=== PATIENT | female | born 1980 | race African-American/Black ===

== ENCOUNTER 2017-06-11 17:04 | Inpatient (IN) | payer BC ==
[~2017-06-11] VITALS: Ht 162.6 cm; Wt 136.3 kg
[2017-06-11 18:01] LABS: HEMATOCRIT 42.7 % (36.0-46.0); MCH 27.1 PG (29.0-34.0); MCHC 32.3 G/DL (30.0-36.0); MCV 83.9 FL (83-99); PLATELET COUNT 447 K/uL (156-360); RBC DIS.WIDTH-CV 14.4 % (11.8-14.6); RBC DIS.WIDTH-SD 43.9 % (39-53); RED BLOOD COUNT 5.09 M/uL (3.80-5.20); WHITE BLOOD COUNT 19.3 K/uL (4.1-10.2)
[2017-06-11 18:12] LABS: CHLORIDE 100 mEq/L (99-109); SODIUM 138 mEq/L (136-147)
[2017-06-11 18:14] LABS: GLUCOSE 110 mg/dL (70-99)
[2017-06-11 18:15] LABS: ANION GAP 12 MEQ/L (2-14)
[2017-06-11 18:18] LABS: GFR ESTIMATE (CALCULATED) > 59 mL/min/
[2017-06-11 18:19] LABS: UREA NITROGEN (BUN) 14 mg/dL (9-23)
[2017-06-11 18:29] LABS: INTER. NORMALIZED RATIO 1.3; PROTHROMBIN TIME 14.5 SEC (10.2-12.9)
[2017-06-11 18:32] LABS: PTT 34.1 SEC (25-37)
[2017-06-11 18:44] LABS: TROP-I INTERPRETATION NEGATIVE; TROPONIN-I 0.05 ng/mL (0.0-0.30)
[2017-06-11] MEDS ORDERED: IRBESARTAN150 MG PO (20:42)
[2017-06-11] MEDS ORDERED: FUROSEMIDE40 MG PO (20:42)
[2017-06-11] MEDS ORDERED: CETIRIZINE HCL10 M2 PO (20:43)
[2017-06-11] MEDS ORDERED: CYCLOBENZAPRINE10 MG PO (20:44)
[2017-06-11] MEDS ORDERED: NAPROXEN500 MG PO (20:44)
[2017-06-12 00:47] VITALS: BP 128/79
[2017-06-12 05:58] LABS: HEMATOCRIT 38.7 % (36.0-46.0); MCH 27.7 PG (29.0-34.0); MCHC 32.8 G/DL (30.0-36.0); MCV 84.3 FL (83-99); MEAN PLAT.VOLUME 9.8 uM^3 (9.5-12.4); PLATELET COUNT 331 K/uL (156-360); RBC DIS.WIDTH-CV 14.8 % (11.8-14.6); RBC DIS.WIDTH-SD 45.2 % (39-53); RED BLOOD COUNT 4.59 M/uL (3.80-5.20); WHITE BLOOD COUNT 17.8 K/uL (4.1-10.2)
[2017-06-12 06:20] LABS: ANION GAP 11 MEQ/L (2-14); CHLORIDE 100 MEQ/L (99-109); GFR ESTIMATE (CALCULATED) > 59 mL/min/; GLUCOSE 116 mg/dL (70-99); POTASSIUM 3.7 MEQ/L (3.7-5.4); SAMPLE HEMOLYSIS CHECK 0; SAMPLE ICTERIC CHECK 0; SAMPLE LIPEMIA CHECK 0; SODIUM 135 MEQ/L (136-147); UREA NITROGEN (BUN) 12 mg/dL (9-23)
[2017-06-12 07:35] VITALS: BP 117/75
[2017-06-12 09:26] LABS: ALKALINE PHOSPHATASE 303 IU/L (3-129); DIRECT BILIRUBIN 1.1 mg/dL (0.0-0.3); LIPASE 3 U/L (1.0-51.0); TOTAL BILIRUBIN 2.2 MG/DL (0.0-1.0)
[2017-06-12 15:28] VITALS: BP 124/67
[2017-06-12 22:26] VITALS: BP 110/62
[2017-06-12 22:47] LABS: COLOR ORANGE ((YELLOW)); GLUCOSE (STRIP) NEGATIVE; KETONES NEGATIVE; LEUKOCYTES SMALL; NITRITE NEGATIVE; PROTEIN (STRIP) TRACE
[2017-06-12 22:48] LABS: ADD MIUA? YES; BILIRUBIN NEGATIVE; BLOOD TRACE
[2017-06-12 22:52] LABS: AMORPHOUS URATES CRYSTALS 2+; BACTERIA 2+ /HPF; CASTS NONE SEEN /LPF; CRYSTALS PRESENT; EPITHELIAL CELLS 1+ /HPF; MUCUS NONE SEEN /LPF; RED BLOOD CELLS 0-5 /HPF (0-5); UCUL ADDED? YES
[2017-06-13 07:31] VITALS: BP 136/68
[2017-06-13 13:13] LABS: HEMATOCRIT 39.1 % (36.0-46.0); MCH 26.9 PG (29.0-34.0); MCHC 31.7 G/DL (30.0-36.0); MCV 84.8 FL (83-99); PLATELET COUNT 320 K/uL (156-360); RBC DIS.WIDTH-CV 14.8 % (11.8-14.6); RBC DIS.WIDTH-SD 46.1 % (39-53); RED BLOOD COUNT 4.61 M/uL (3.80-5.20); WHITE BLOOD COUNT 16.5 K/uL (4.1-10.2)
[2017-06-13 14:33] LABS: ALKALINE PHOSPHATASE 281 IU/L (3-129); ANION GAP 12 MEQ/L (2-14); CHLORIDE 96 MEQ/L (99-109); GFR ESTIMATE (CALCULATED) > 59 mL/min/; GLUCOSE 100 mg/dL (70-99); POTASSIUM 4.1 MEQ/L (3.7-5.4); SAMPLE HEMOLYSIS CHECK 0; SAMPLE ICTERIC CHECK 0; SAMPLE LIPEMIA CHECK 0; SODIUM 134 MEQ/L (136-147); TOTAL BILIRUBIN 2.1 MG/DL (0.0-1.0); UREA NITROGEN (BUN) 8 mg/dL (9-23)
[2017-06-13 15:52] VITALS: BP 140/70
[2017-06-14 01:17] VITALS: BP 119/60
[2017-06-14 07:23] VITALS: BP 125/72
[2017-06-14] MEDS ORDERED: DOCUSATE SODIU100 MG PO (09:52)
[2017-06-14] MEDS ORDERED: POLYETHYLENE GL17 GM PO (09:52)
[2017-06-14] MEDS ORDERED: ALPRAZOLAM0.25 M2 PO (09:54)
[2017-06-14] MEDS ORDERED: MORPHINE SULFAT15 M1 PO (09:54)
[2017-06-14] MEDS ORDERED: ACETAMINOPHEN-1 EAC1 PO (09:54)
[2017-06-14] MEDS ORDERED: Salonpas 4% Patch TD (09:55)
[2017-06-14] MEDS ORDERED: VENTOLIN HFA18 GM IH (09:59)
== END 2017-06-14 12:09 | disposition home or self-care (01) | DRG 436 ==
LOC: EME 17:04 → EDOF 22:29 → 5EAST 22:29 → ENRESERV 22:30 → 5EAST 06-12
PROVIDERS: Emergency Medicine; Hospitalist
PROC: 0FB03ZX Excision of Liver, Percutaneous Approach, Diagnostic (ICD-10-PCS; principal; 2017-06-13)
DX: C78.7 Secondary malignant neoplasm of liver and intrahepatic bile duct (principal); C78.02 Secondary malignant neoplasm of left lung; C78.01 Secondary malignant neoplasm of right lung; C77.1 Secondary and unspecified malignant neoplasm of intrathoracic lymph nodes; R50.9 Fever, unspecified; E28.2 Polycystic ovarian syndrome; I10 Essential (primary) hypertension; M54.9 Dorsalgia, unspecified; K59.00 Constipation, unspecified; E66.01 Morbid (severe) obesity due to excess calories; Z68.43 Body mass index [BMI] 50.0-59.9, adult; Z80.3 Family history of malignant neoplasm of breast; Z87.891 Personal history of nicotine dependence
CPT/HCPCS: 71010; 71020; 71275; 74176; 77012; 80048; 80053; 80076; 81003; 82105 90; 82378; 83690; 83880; 84484; 85027; 85610; 85730; 86300 90; 86301 90; 86304; 87040; 87086; 88307; 88341 TC; 88342 TC; 93005; 94640; 94640 76; 99202; 99281; 99285; J1650; J2270; J3010; J7030

== ENCOUNTER → 2017-08-02 | Outpatient (CLI) | payer BC ==
[~2017-08-02] MED LIST: ACETAMINOPHEN-1 EAC1 PO; ALPRAZOLAM0.25 M2 PO; CALCIUM 500 MG1 EACH PO; CETIRIZINE HCL10 M2 PO; CLARITIN10 M3 PO; CYCLOBENZAPRINE10 MG PO; DOCUSATE SODIU100 MG PO; FOLIC ACID1 MG PO; FUROSEMIDE40 MG PO; IRBESARTAN150 MG PO; MORPHINE SULFAT15 M1 PO; NAPROXEN500 MG PO; POLYETHYLENE GL17 GM PO; ROXICODONE5 MG PO; Salonpas 4% Patch TD; VENTOLIN HFA18 GM IH; VITAMIN D32000 UNI1 PO
== END | disposition home or self-care (01) ==
LOC: AMB 11:39
PROC: 0HBT0ZX Excision of Right Breast, Open Approach, Diagnostic (ICD-10-PCS; principal; 2017-08-02)
DX: C50.911 Malignant neoplasm of unspecified site of right female breast (principal); C22.1 Intrahepatic bile duct carcinoma; C78.00 Secondary malignant neoplasm of unspecified lung; C79.51 Secondary malignant neoplasm of bone; I10 Essential (primary) hypertension; E66.01 Morbid (severe) obesity due to excess calories
CPT/HCPCS: 88305

== ENCOUNTER 2018-01-20 17:38 | Inpatient (IN) | payer BC, OTHER ==
[~2018-01-20] VITALS: Ht 162.6 cm; Wt 97.0 kg
[2018-01-20 18:39] LABS: HEMATOCRIT 29.7 % (36.0-46.0); HEMOGLOBIN 9.9 G/DL (11.9-15.5); MCH 34.9 PG (29.0-34.0); MCHC 33.3 G/DL (30.0-36.0); MCV 104.6 FL (83-99); PLATELET COUNT 154 K/uL (156-360); RBC DIS.WIDTH-CV 19.9 % (11.8-14.6); RBC DIS.WIDTH-SD 76.7 % (39-53); RED BLOOD COUNT 2.84 M/uL (3.80-5.20); WHITE BLOOD COUNT 8.7 K/uL (4.1-10.2)
[2018-01-20 18:43] LABS: ALBUMIN 2.8 g/dL (3.2-4.8); CHLORIDE 101 mEq/L (99-109); POTASSIUM 5.8 mEq/L (3.7-5.4); SODIUM 134 mEq/L (136-147)
[2018-01-20 18:45] LABS: GLUCOSE 91 mg/dL (70-99); TOTAL PROTEIN 5.9 g/dL (6.4-8.3)
[2018-01-20 18:47] LABS: TOTAL BILIRUBIN 8.9 mg/dL (0.0-1.0)
[2018-01-20 18:49] LABS: ALKALINE PHOSPHATASE 684 IU/L (3-129); CREATININE 4.4 mg/dL (0.6-1.3); GFR ESTIMATE (CALCULATED) 14 mL/min/
[2018-01-20 18:50] LABS: UREA NITROGEN (BUN) 49 mg/dL (9-23)
[2018-01-20 18:51] LABS: AST (GOT) 125 IU/L (2-34)
[2018-01-20 18:52] LABS: ALT (GPT) 61 IU/L (3-49)
[2018-01-20 18:53] LABS: TROP-I INTERPRETATION INDETERMINATE; TROPONIN-I 0.53 ng/mL (0.0-0.30)
[2018-01-20] MEDS ORDERED: MS CONTIN,ORAMO15 M1 PO (20:50)
[2018-01-20] MEDS ORDERED: SENNA PLUS TAB1 EACH PO (20:52)
[2018-01-20] MEDS ORDERED: CALCIUM 500 MG1 EACH PO (20:52)
[2018-01-20] MEDS ORDERED: MIRALAX17 GM PO (20:53)
[2018-01-20] MEDS ORDERED: ZYRTEC10 M3 PO (20:54)
[2018-01-20] MEDS ORDERED: ROCALTROL0.25 MCG PO (20:55)
[2018-01-20] MEDS ORDERED: ERGOCALCIF50000 UNIT PO (20:55)
[2018-01-20] MEDS ORDERED: KLOR-CON M2020 MEQ PO (20:55)
[2018-01-20] MEDS ORDERED: PROTONIX40 MG PO (20:56)
[2018-01-20] MEDS ORDERED: B-12500 MC1 SL (20:56)
[2018-01-20] MEDS ORDERED: OXYCODONE HCL10 MG PO (20:58)
[2018-01-20] MEDS ORDERED: [UNRECOGNIZED DRUG - OTHER] TP (21:00)
[2018-01-20 22:30] LABS: ALBUMIN 2.8 g/dL (3.2-4.8); CHLORIDE 101 mEq/L (99-109); POTASSIUM 5.8 mEq/L (3.7-5.4); SODIUM 133 mEq/L (136-147)
[2018-01-20 22:33] LABS: GLUCOSE 103 mg/dL (70-99); TOTAL PROTEIN 5.8 g/dL (6.4-8.3)
[2018-01-20 22:34] LABS: TOTAL BILIRUBIN 8.9 mg/dL (0.0-1.0)
[2018-01-20 22:36] LABS: ALKALINE PHOSPHATASE 696 IU/L (3-129); CREATININE 4.4 mg/dL (0.6-1.3); GFR ESTIMATE (CALCULATED) 14 mL/min/
[2018-01-20 22:37] LABS: UREA NITROGEN (BUN) 48 mg/dL (9-23)
[2018-01-20 22:38] LABS: AST (GOT) 121 IU/L (2-34)
[2018-01-20 22:39] LABS: ALT (GPT) 62 IU/L (3-49)
[2018-01-21] VITALS (19 sets, daily range): BP systolic 46–113; BP diastolic 39–86
[2018-01-21 02:51] LABS: HEMATOCRIT 28.6 % (36.0-46.0); HEMOGLOBIN 9.4 G/DL (11.9-15.5); MCH 34.8 PG (29.0-34.0); MCHC 32.9 G/DL (30.0-36.0); MCV 105.9 FL (83-99); PLATELET COUNT 173 K/uL (156-360); RBC DIS.WIDTH-CV 19.9 % (11.8-14.6); RBC DIS.WIDTH-SD 79.2 % (39-53); WHITE BLOOD COUNT 9.2 K/uL (4.1-10.2)
[2018-01-21 03:01] LABS: CHLORIDE 101 mEq/L (99-109); POTASSIUM 5.4 mEq/L (3.7-5.4); SODIUM 134 mEq/L (136-147)
[2018-01-21 03:03] LABS: GLUCOSE 101 mg/dL (70-99)
[2018-01-21 03:07] LABS: CREATININE 4.4 mg/dL (0.6-1.3); GFR ESTIMATE (CALCULATED) 14 mL/min/
[2018-01-21 03:08] LABS: UREA NITROGEN (BUN) 48 mg/dL (9-23)
[2018-01-21 03:14] LABS: TROP-I INTERPRETATION INDETERMINATE; TROPONIN-I 0.58 ng/mL (0.0-0.30)
[2018-01-21 08:49] LABS: PHOSPHORUS 5.3 mg/dL (2.5-4.9)
[2018-01-21 08:52] LABS: URIC ACID 15.4 mg/dL (3.1-9.2)
[2018-01-21 09:01] LABS: BICARBONATE 17.2 mEq/L (22-26); COMMENTS - BLOOD GASES A+C+; DEVICE NC; METHEMOGLOBIN 0.9 % (0-1.5); O2 FLOW 2 L/MIN; PCO2 45 mm Hg (35-45); PO2 92 mm Hg (80-100); SITE RR; TOTAL RESP RATE 16 resp/min
[2018-01-21 09:02] LABS: BASE EXCESS -10.4 mEq/L (-3 to +3)
[2018-01-21 09:04] LABS: pH 7.19 (7.35-7.45)
[2018-01-21 15:47] LABS: PCO2 59 mm Hg (35-45); PO2 38 mm Hg (80-100); pH 7.24 (7.35-7.45)
[2018-01-21 15:48] LABS: BASE EXCESS -2.5 mEq/L (-3 to +3); BICARBONATE 25.3 mEq/L (22-26); CARBOXY HGB 1.6 % (0-5); METHEMOGLOBIN 1.4 % (0-1.5); O2 SATURATION (CALCULATED) 68.2 % (95-99); SITE LINE DRAW
[2018-01-21 17:08] LABS: BASOPHIL (%) 0.3 % (0-1); EOSINOPHIL (%) 1.5 % (0-5); EOSINOPHIL COUNT 0.1 K/uL (0-0.3); HEMATOCRIT 27.4 % (36.0-46.0); HEMOGLOBIN 8.9 G/DL (11.9-15.5); IMMATURE GRANULOCYTE (%) 2.3 % (0.0-0.7); LYMPHOCYTE (%) 10.3 % (15-42); MCH 34.1 PG (29.0-34.0); MCHC 32.5 G/DL (30.0-36.0); MONOCYTE (%) 14.7 % (3-12); MONOCYTE COUNT 1.4 K/uL (0-0.8); NEUTROPHIL (%) 70.9 % (45-76); NEUTROPHIL COUNT 6.6 K/uL (1.8-6.4); PLATELET COUNT 199 K/uL (156-360); RBC DIS.WIDTH-CV 19.8 % (11.8-14.6); RBC DIS.WIDTH-SD 77.2 % (39-53); RED BLOOD COUNT 2.61 M/uL (3.80-5.20); WHITE BLOOD COUNT 9.3 K/uL (4.1-10.2)
[2018-01-21 17:37] LABS: ALBUMIN 2.6 G/DL (3.2-4.8); CHLORIDE 93 MEQ/L (99-109); CREATININE 3.7 MG/DL (0.6-1.3); GFR ESTIMATE (CALCULATED) 18 mL/min/; MAGNESIUM 1.6 mg/dl (1.3-2.7); PHOSPHORUS 4.2 mg/dL (2.5-4.9); POTASSIUM 4.4 MEQ/L (3.7-5.4); SODIUM 129 MEQ/L (136-147); UREA NITROGEN (BUN) 43 mg/dL (9-23)
[2018-01-21 17:39] LABS: GLUCOSE 184 mg/dL (70-99)
[2018-01-21 22:53] LABS: ALBUMIN 2.9 g/dL (3.2-4.8)
[2018-01-21 22:54] LABS: CHLORIDE 98 mEq/L (99-109); SODIUM 133 mEq/L (136-147)
[2018-01-21 22:56] LABS: GLUCOSE 139 mg/dL (70-99)
[2018-01-21 23:00] LABS: UREA NITROGEN (BUN) 31 mg/dL (9-23)
[2018-01-21 23:01] LABS: CREATININE 2.6 mg/dL (0.6-1.3); GFR ESTIMATE (CALCULATED) 26 mL/min/; PHOSPHORUS 3.3 mg/dL (2.5-4.9)
[2018-01-22] VITALS (12 sets, daily range): BP systolic 91–120; BP diastolic 40–58
[2018-01-22 05:24] LABS: BASOPHIL (%) 0.5 % (0-1); BASOPHIL COUNT 0.1 K/uL (0-0.1); EOSINOPHIL (%) 0.3 % (0-5); HEMATOCRIT 29.3 % (36.0-46.0); HEMOGLOBIN 9.7 G/DL (11.9-15.5); IMMATURE GRANULOCYTE (%) 2.1 % (0.0-0.7); LYMPHOCYTE (%) 7.2 % (15-42); LYMPHOCYTE COUNT 0.7 K/uL (1.0-2.8); MCH 34.3 PG (29.0-34.0); MCHC 33.1 G/DL (30.0-36.0); MCV 103.5 FL (83-99); MONOCYTE (%) 7.5 % (3-12); MONOCYTE COUNT 0.7 K/uL (0-0.8); NEUTROPHIL (%) 82.4 % (45-76); NEUTROPHIL COUNT 7.9 K/uL (1.8-6.4); PLATELET COUNT 160 K/uL (156-360); RBC DIS.WIDTH-CV 19.9 % (11.8-14.6); RBC DIS.WIDTH-SD 75.2 % (39-53); RED BLOOD COUNT 2.83 M/uL (3.80-5.20); WHITE BLOOD COUNT 9.5 K/uL (4.1-10.2)
[2018-01-22 05:53] LABS: ALBUMIN 2.9 G/DL (3.2-4.8); CHLORIDE 102 MEQ/L (99-109); GLUCOSE 134 mg/dL (70-99); POTASSIUM 4.9 MEQ/L (3.7-5.4); SODIUM 135 MEQ/L (136-147); UREA NITROGEN (BUN) 21 mg/dL (9-23)
[2018-01-22 06:12] LABS: MAGNESIUM 2.2 mg/dl (1.3-2.7); PHOSPHORUS 2.4 mg/dL (2.5-4.9)
[2018-01-22 06:13] LABS: GFR ESTIMATE (CALCULATED) 40 mL/min/; PHOSPHORUS 2.4 mg/dL (2.5-4.9)
[2018-01-22 06:46] LABS: CREATININE 1.8 MG/DL (0.6-1.3)
[2018-01-22 11:34] LABS: COMMENTS - BLOOD GASES ALINE; DEVICE NC; O2 FLOW 2 L/MIN; SITE ALINE
[2018-01-22 11:35] LABS: BASE EXCESS -2.2 mEq/L (-3 to +3); BICARBONATE 23.7 mEq/L (22-26); CARBOXY HGB 2.1 % (0-5); METHEMOGLOBIN 0.8 % (0-1.5); PCO2 45 mm Hg (35-45); PO2 87 mm Hg (80-100); TOTAL RESP RATE 21 resp/min; pH 7.33 (7.35-7.45)
[2018-01-22 14:13] LABS: BASOPHIL (%) 0.3 % (0-1); EOSINOPHIL (%) 0.3 % (0-5); HEMATOCRIT 26.7 % (36.0-46.0); HEMOGLOBIN 8.9 G/DL (11.9-15.5); IMMATURE GRANULOCYTE (%) 2.6 % (0.0-0.7); LYMPHOCYTE (%) 10.1 % (15-42); LYMPHOCYTE COUNT 1.2 K/uL (1.0-2.8); MCH 34.8 PG (29.0-34.0); MCHC 33.3 G/DL (30.0-36.0); MCV 104.3 FL (83-99); MONOCYTE (%) 15.3 % (3-12); MONOCYTE COUNT 1.8 K/uL (0-0.8); NEUTROPHIL (%) 71.4 % (45-76); NEUTROPHIL COUNT 8.5 K/uL (1.8-6.4); NRBC (%) 0.2 /100 WBC (0-0); PLATELET COUNT 184 K/uL (156-360); RBC DIS.WIDTH-SD 76.2 % (39-53); RED BLOOD COUNT 2.56 M/uL (3.80-5.20); WHITE BLOOD COUNT 11.8 K/uL (4.1-10.2)
[2018-01-22 14:49] LABS: ALBUMIN 2.7 G/DL (3.2-4.8); CHLORIDE 101 MEQ/L (99-109); CREATININE 1.5 MG/DL (0.6-1.3); GFR ESTIMATE (CALCULATED) 50 mL/min/; GLUCOSE 102 mg/dL (70-99); MAGNESIUM 2.2 mg/dl (1.3-2.7); POTASSIUM 4.3 MEQ/L (3.7-5.4); SODIUM 136 MEQ/L (136-147); UREA NITROGEN (BUN) 14 mg/dL (9-23)
[2018-01-22 14:50] LABS: PHOSPHORUS 1.5 mg/dL (2.5-4.9)
[2018-01-22 15:27] LABS: URIC ACID < 1.5 mg/dL (3.1-9.2)
[2018-01-22 16:27] LABS: APPEARANCE CLOUDY ((CLEAR)); BILIRUBIN SMALL; BLOOD LARGE; COLOR AMBER ((YELLOW)); GLUCOSE (STRIP) NEGATIVE; KETONES NEGATIVE; LEUKOCYTES SMALL; NITRITE NEGATIVE; PROTEIN (STRIP) 100; SPECIFIC GRAVITY 1.026 (1.000-1.030)
[2018-01-22 16:57] LABS: EPITHELIAL CELLS 2+ /HPF; RED BLOOD CELLS TNTC /HPF (0-5); WHITE BLOOD CELLS 0-5 /HPF (0-5)
[2018-01-22 17:00] LABS: BACTERIA 2+ /HPF; HYALINE CASTS 0-5 /LPF; MUCUS RARE /LPF
[2018-01-22 22:13] LABS: ALBUMIN 2.7 g/dL (3.2-4.8)
[2018-01-22 22:14] LABS: CHLORIDE 104 mEq/L (99-109); POTASSIUM 4.4 mEq/L (3.7-5.4); SODIUM 137 mEq/L (136-147)
[2018-01-22 22:16] LABS: GLUCOSE 120 mg/dL (70-99)
[2018-01-22 22:20] LABS: CREATININE 1.2 mg/dL (0.6-1.3); GFR ESTIMATE (CALCULATED) > 59 mL/min/; PHOSPHORUS 1.7 mg/dL (2.5-4.9)
[2018-01-22 22:21] LABS: UREA NITROGEN (BUN) 10 mg/dL (9-23)
[2018-01-23 05:29] LABS: HEMOGLOBIN 8.8 G/DL (11.9-15.5); MCH 33.1 PG (29.0-34.0); MCHC 31.4 G/DL (30.0-36.0); MCV 105.3 FL (83-99); NRBC (%) 0.2 /100 WBC (0-0); PLATELET COUNT 179 K/uL (156-360); RBC DIS.WIDTH-CV 20.3 % (11.8-14.6); RBC DIS.WIDTH-SD 77.8 % (39-53); RED BLOOD COUNT 2.66 M/uL (3.80-5.20); WHITE BLOOD COUNT 12.8 K/uL (4.1-10.2)
[2018-01-23 05:31] LABS: BASOPHIL (%) 0.4 % (0-1); BASOPHIL COUNT 0.1 K/uL (0-0.1); EOSINOPHIL (%) 0.9 % (0-5); EOSINOPHIL COUNT 0.1 K/uL (0-0.3); IMMATURE GRANULOCYTE (%) 2.5 % (0.0-0.7); LYMPHOCYTE (%) 15.5 % (15-42); MONOCYTE (%) 12.9 % (3-12); MONOCYTE COUNT 1.7 K/uL (0-0.8); NEUTROPHIL (%) 67.8 % (45-76); NEUTROPHIL COUNT 8.7 K/uL (1.8-6.4)
[2018-01-23 06:19] LABS: ALBUMIN 2.8 G/DL (3.2-4.8); CHLORIDE 104 MEQ/L (99-109); CREATININE 1.2 MG/DL (0.6-1.3); GFR ESTIMATE (CALCULATED) > 59 mL/min/; GLUCOSE 106 mg/dL (70-99); MAGNESIUM 2.2 mg/dl (1.3-2.7); POTASSIUM 4.3 MEQ/L (3.7-5.4); SODIUM 137 MEQ/L (136-147); UREA NITROGEN (BUN) 8 mg/dL (9-23)
[2018-01-23 06:22] LABS: PHOSPHORUS 2.1 mg/dL (2.5-4.9)
[2018-01-23 14:00] VITALS: BP 94/39
[2018-01-23 14:14] LABS: BASOPHIL (%) 0.3 % (0-1); EOSINOPHIL (%) 1.7 % (0-5); EOSINOPHIL COUNT 0.2 K/uL (0-0.3); HEMATOCRIT 27.5 % (36.0-46.0); HEMOGLOBIN 8.8 G/DL (11.9-15.5); IMMATURE GRANULOCYTE (%) 2.5 % (0.0-0.7); LYMPHOCYTE (%) 13.1 % (15-42); LYMPHOCYTE COUNT 1.8 K/uL (1.0-2.8); MCH 34.4 PG (29.0-34.0); MCV 107.4 FL (83-99); MONOCYTE (%) 10.5 % (3-12); MONOCYTE COUNT 1.4 K/uL (0-0.8); NEUTROPHIL (%) 71.9 % (45-76); NEUTROPHIL COUNT 9.9 K/uL (1.8-6.4); NRBC (%) 0.1 /100 WBC (0-0); PLATELET COUNT 159 K/uL (156-360); RBC DIS.WIDTH-CV 20.4 % (11.8-14.6); RBC DIS.WIDTH-SD 81.5 % (39-53); RED BLOOD COUNT 2.56 M/uL (3.80-5.20); WHITE BLOOD COUNT 13.7 K/uL (4.1-10.2)
[2018-01-23 14:35] LABS: ALBUMIN 2.8 G/DL (3.2-4.8); CHLORIDE 104 MEQ/L (99-109); CREATININE 1.2 MG/DL (0.6-1.3); GFR ESTIMATE (CALCULATED) > 59 mL/min/; GLUCOSE 118 mg/dL (70-99); MAGNESIUM 2.3 mg/dl (1.3-2.7); PHOSPHORUS 1.4 mg/dL (2.5-4.9); POTASSIUM 4.2 MEQ/L (3.7-5.4); SODIUM 137 MEQ/L (136-147); UREA NITROGEN (BUN) 7 mg/dL (9-23)
[2018-01-23 22:02] LABS: ALBUMIN 2.7 g/dL (3.2-4.8); CHLORIDE 107 mEq/L (99-109); POTASSIUM 4.2 mEq/L (3.7-5.4); SODIUM 138 mEq/L (136-147)
[2018-01-23 22:04] LABS: GLUCOSE 127 mg/dL (70-99)
[2018-01-23 22:08] LABS: CREATININE 1.5 mg/dL (0.6-1.3); GFR ESTIMATE (CALCULATED) 50 mL/min/
[2018-01-23 22:09] LABS: PHOSPHORUS 2.8 mg/dL (2.5-4.9); UREA NITROGEN (BUN) 10 mg/dL (9-23)
[2018-01-24 04:49] LABS: BASOPHIL (%) 0.2 % (0-1); EOSINOPHIL (%) 1.9 % (0-5); EOSINOPHIL COUNT 0.3 K/uL (0-0.3); HEMATOCRIT 26.9 % (36.0-46.0); HEMOGLOBIN 8.5 G/DL (11.9-15.5); IMMATURE GRANULOCYTE (%) 4.1 % (0.0-0.7); LYMPHOCYTE (%) 14.4 % (15-42); MCH 34.1 PG (29.0-34.0); MCHC 31.6 G/DL (30.0-36.0); MONOCYTE (%) 11.4 % (3-12); MONOCYTE COUNT 1.6 K/uL (0-0.8); NEUTROPHIL COUNT 9.5 K/uL (1.8-6.4); NRBC (%) 0.2 /100 WBC (0-0); PLATELET COUNT 137 K/uL (156-360); RBC DIS.WIDTH-CV 20.4 % (11.8-14.6); RBC DIS.WIDTH-SD 81.2 % (39-53); RED BLOOD COUNT 2.49 M/uL (3.80-5.20)
[2018-01-24 05:03] LABS: ALBUMIN 2.8 g/dL (3.2-4.8)
[2018-01-24 05:04] LABS: CHLORIDE 107 mEq/L (99-109); POTASSIUM 4.4 mEq/L (3.7-5.4); SODIUM 138 mEq/L (136-147)
[2018-01-24 05:05] LABS: MAGNESIUM 1.9 mg/dL (1.3-2.7)
[2018-01-24 05:06] LABS: GLUCOSE 113 mg/dL (70-99)
[2018-01-24 05:09] LABS: PHOSPHORUS 2.9 mg/dL (2.5-4.9)
[2018-01-24 05:10] LABS: CREATININE 1.8 mg/dL (0.6-1.3); GFR ESTIMATE (CALCULATED) 40 mL/min/
[2018-01-24 05:11] LABS: UREA NITROGEN (BUN) 12 mg/dL (9-23)
[2018-01-24 13:40] LABS: BASOPHIL (%) 0.3 % (0-1); EOSINOPHIL (%) 2.2 % (0-5); EOSINOPHIL COUNT 0.3 K/uL (0-0.3); HEMATOCRIT 25.8 % (36.0-46.0); HEMOGLOBIN 7.9 G/DL (11.9-15.5); LYMPHOCYTE (%) 14.7 % (15-42); MCH 34.1 PG (29.0-34.0); MCHC 30.6 G/DL (30.0-36.0); MCV 111.2 FL (83-99); MONOCYTE (%) 10.2 % (3-12); MONOCYTE COUNT 1.4 K/uL (0-0.8); NEUTROPHIL (%) 68.6 % (45-76); NEUTROPHIL COUNT 9.5 K/uL (1.8-6.4); NRBC (%) 0.2 /100 WBC (0-0); PLATELET COUNT 115 K/uL (156-360); RBC DIS.WIDTH-CV 20.4 % (11.8-14.6); RBC DIS.WIDTH-SD 82.5 % (39-53); RED BLOOD COUNT 2.32 M/uL (3.80-5.20); WHITE BLOOD COUNT 13.8 K/uL (4.1-10.2)
[2018-01-24 14:14] LABS: ALBUMIN 3.2 G/DL (3.2-4.8); CHLORIDE 108 MEQ/L (99-109); CREATININE 2.1 MG/DL (0.6-1.3); GFR ESTIMATE (CALCULATED) 34 mL/min/; GLUCOSE 106 mg/dL (70-99); MAGNESIUM 2.1 mg/dl (1.3-2.7); POTASSIUM 4.3 MEQ/L (3.7-5.4); SODIUM 140 MEQ/L (136-147); UREA NITROGEN (BUN) 15 mg/dL (9-23)
[2018-01-24 14:15] LABS: PHOSPHORUS 2.5 mg/dL (2.5-4.9)
[2018-01-25 05:38] LABS: BASOPHIL (%) 0.3 % (0-1); BASOPHIL COUNT 0.1 K/uL (0-0.1); EOSINOPHIL (%) 0.9 % (0-5); EOSINOPHIL COUNT 0.2 K/uL (0-0.3); HEMATOCRIT 27.2 % (36.0-46.0); IMMATURE GRANULOCYTE (%) 4.3 % (0.0-0.7); LYMPHOCYTE (%) 10.7 % (15-42); LYMPHOCYTE COUNT 1.7 K/uL (1.0-2.8); MCH 33.6 PG (29.0-34.0); MCHC 29.4 G/DL (30.0-36.0); MCV 114.3 FL (83-99); MONOCYTE (%) 7.3 % (3-12); MONOCYTE COUNT 1.2 K/uL (0-0.8); NEUTROPHIL (%) 76.5 % (45-76); NEUTROPHIL COUNT 12.2 K/uL (1.8-6.4); NRBC (%) 0.1 /100 WBC (0-0); PLATELET COUNT 98 K/uL (156-360); RBC DIS.WIDTH-CV 20.2 % (11.8-14.6); RBC DIS.WIDTH-SD 84.7 % (39-53); RED BLOOD COUNT 2.38 M/uL (3.80-5.20); WHITE BLOOD COUNT 15.9 K/uL (4.1-10.2)
[2018-01-25 06:01] LABS: ALBUMIN 3.2 G/DL (3.2-4.8); CHLORIDE 109 MEQ/L (99-109); GFR ESTIMATE (CALCULATED) 24 mL/min/; GLUCOSE 101 mg/dL (70-99); MAGNESIUM 2.1 mg/dl (1.3-2.7); PHOSPHORUS 3.3 mg/dL (2.5-4.9); POTASSIUM 4.6 MEQ/L (3.7-5.4); SODIUM 139 MEQ/L (136-147); UREA NITROGEN (BUN) 19 mg/dL (9-23)
[2018-01-25 06:03] LABS: CREATININE 2.8 MG/DL (0.6-1.3)
[2018-01-25 12:11] LABS: COMMENTS - BLOOD GASES C+ANA; DEVICE 840 PB; FI02 100 %; MECHANICAL RATE 20 resp/min; MODE AC; PEEP 5 CM/H20; SITE ALINE; TIDAL VOLUME 450 ML; TOTAL RESP RATE 20 resp/min; pH 7.15 (7.35-7.45)
[2018-01-25 12:12] LABS: BASE EXCESS -12.1 mEq/L (-3 to +3); CARBOXY HGB 1.6 % (0-5); PCO2 46 mm Hg (35-45); PO2 437 mm Hg (80-100)
[2018-01-25 12:16] LABS: ALBUMIN 3.5 G/DL (3.2-4.8); ALKALINE PHOSPHATASE 660 IU/L (3-129); ALT (GPT) 68 IU/L (3-49); AST (GOT) 135 IU/L (2-34); CHLORIDE 109 MEQ/L (99-109); GFR ESTIMATE (CALCULATED) 22 mL/min/; GLUCOSE 104 mg/dL (70-99); POTASSIUM 4.6 MEQ/L (3.7-5.4); SODIUM 140 MEQ/L (136-147); TOTAL BILIRUBIN 13.1 MG/DL (0.0-1.0); UREA NITROGEN (BUN) 21 mg/dL (9-23)
[2018-01-25 12:23] LABS: HIGH-SENS C-REACTIVE PROTEIN > 8.00 MG/DL (0.02-0.20)
[2018-01-25 13:14] VITALS: BP 95/59
[2018-01-25 18:01] LABS: BASOPHIL (%) 0.2 % (0-1); EOSINOPHIL (%) 1.1 % (0-5); EOSINOPHIL COUNT 0.2 K/uL (0-0.3); HEMATOCRIT 24.5 % (36.0-46.0); HEMOGLOBIN 7.4 G/DL (11.9-15.5); IMMATURE GRANULOCYTE (%) 4.8 % (0.0-0.7); LYMPHOCYTE (%) 10.7 % (15-42); LYMPHOCYTE COUNT 1.7 K/uL (1.0-2.8); MCH 33.9 PG (29.0-34.0); MCHC 30.2 G/DL (30.0-36.0); MCV 112.4 FL (83-99); MONOCYTE (%) 5.3 % (3-12); MONOCYTE COUNT 0.9 K/uL (0-0.8); NEUTROPHIL (%) 77.9 % (45-76); NEUTROPHIL COUNT 12.5 K/uL (1.8-6.4); NRBC (%) 0.2 /100 WBC (0-0); PLATELET COUNT 73 K/uL (156-360); RBC DIS.WIDTH-CV 20.3 % (11.8-14.6); RBC DIS.WIDTH-SD 84.2 % (39-53); RED BLOOD COUNT 2.18 M/uL (3.80-5.20); WHITE BLOOD COUNT 16.1 K/uL (4.1-10.2)
[2018-01-25 18:25] LABS: ALBUMIN 3.6 G/DL (3.2-4.8); CHLORIDE 109 MEQ/L (99-109); GLUCOSE 99 mg/dL (70-99); MAGNESIUM 2.1 mg/dl (1.3-2.7); SODIUM 139 MEQ/L (136-147); UREA NITROGEN (BUN) 17 mg/dL (9-23)
[2018-01-25 18:26] LABS: CREATININE 2.3 MG/DL (0.6-1.3); GFR ESTIMATE (CALCULATED) 30 mL/min/; PHOSPHORUS 1.7 mg/dL (2.5-4.9)
[2018-01-25 19:56] LABS: INTER. NORMALIZED RATIO 1.5
[2018-01-25 20:09] LABS: PTT 146.3 SEC (25-37)
[2018-01-26 00:32] LABS: ALBUMIN 3.3 g/dL (3.2-4.8); CHLORIDE 107 mEq/L (99-109); POTASSIUM 4.4 mEq/L (3.7-5.4); SODIUM 139 mEq/L (136-147)
[2018-01-26 00:34] LABS: GLUCOSE 94 mg/dL (70-99)
[2018-01-26 00:38] LABS: PHOSPHORUS 2.1 mg/dL (2.5-4.9)
[2018-01-26 00:39] LABS: UREA NITROGEN (BUN) 11 mg/dL (9-23)
[2018-01-26 00:46] LABS: CREATININE 1.5 mg/dL (0.6-1.3); GFR ESTIMATE (CALCULATED) 50 mL/min/
[2018-01-26 04:00] VITALS: BP 102/60
[2018-01-26 07:02] LABS: BASOPHIL (%) 0.2 % (0-1); EOSINOPHIL (%) 0.2 % (0-5); HEMATOCRIT 25.4 % (36.0-46.0); IMMATURE GRANULOCYTE (%) 3.7 % (0.0-0.7); LYMPHOCYTE (%) 5.7 % (15-42); MCH 34.2 PG (29.0-34.0); MCHC 31.5 G/DL (30.0-36.0); MCV 108.5 FL (83-99); MONOCYTE (%) 3.3 % (3-12); MONOCYTE COUNT 0.6 K/uL (0-0.8); NEUTROPHIL (%) 86.9 % (45-76); NEUTROPHIL COUNT 15.6 K/uL (1.8-6.4); NRBC (%) 0.2 /100 WBC (0-0); PLATELET COUNT 90 K/uL (156-360); RBC DIS.WIDTH-CV 19.6 % (11.8-14.6); RBC DIS.WIDTH-SD 78.2 % (39-53); RED BLOOD COUNT 2.34 M/uL (3.80-5.20); WHITE BLOOD COUNT 17.9 K/uL (4.1-10.2)
[2018-01-26 07:30] LABS: ALBUMIN 3.3 G/DL (3.2-4.8); CHLORIDE 104 MEQ/L (99-109); CREATININE 1.2 MG/DL (0.6-1.3); GFR ESTIMATE (CALCULATED) > 59 mL/min/; GLUCOSE 107 mg/dL (70-99); MAGNESIUM 2.3 mg/dl (1.3-2.7); PHOSPHORUS 1.8 mg/dL (2.5-4.9); POTASSIUM 4.2 MEQ/L (3.7-5.4); SODIUM 138 MEQ/L (136-147); UREA NITROGEN (BUN) 9 mg/dL (9-23)
[2018-01-26 07:45] LABS: VANCOMYCIN, TROUGH 9.8 MCG/ML (10-20)
[2018-01-26 08:52] LABS: COMMENTS - BLOOD GASES C+ANA; DEVICE PB VENT; FI02 50 %; MECHANICAL RATE 26 resp/min; MODE AC; SITE ALINE; TIDAL VOLUME 450 ML; TOTAL RESP RATE 26 resp/min
[2018-01-26 08:53] LABS: O2 SATURATION (CALCULATED) 96.7 % (95-99); PCO2 32 mm Hg (35-45); PEEP 5 CM/H20; PO2 105 mm Hg (80-100); pH 7.39 (7.35-7.45)
[2018-01-26 08:54] LABS: BASE EXCESS -4.8 mEq/L (-3 to +3); BICARBONATE 19.4 mEq/L (22-26); CARBOXY HGB 2 % (0-5); METHEMOGLOBIN 1.1 % (0-1.5)
[2018-01-26 13:32] LABS: ALBUMIN 3.4 G/DL (3.2-4.8); CHLORIDE 103 MEQ/L (99-109); CREATININE 1.1 MG/DL (0.6-1.3); GFR ESTIMATE (CALCULATED) > 59 mL/min/; GLUCOSE 118 mg/dL (70-99); POTASSIUM 4.1 MEQ/L (3.7-5.4); SODIUM 137 MEQ/L (136-147); UREA NITROGEN (BUN) 8 mg/dL (9-23)
[2018-01-26 13:33] LABS: PHOSPHORUS 2.6 mg/dL (2.5-4.9)
[2018-01-26 17:59] LABS: BASOPHIL (%) 0.2 % (0-1); EOSINOPHIL (%) 0.1 % (0-5); IMMATURE GRANULOCYTE (%) 3.9 % (0.0-0.7); LYMPHOCYTE (%) 6.3 % (15-42); LYMPHOCYTE COUNT 1.3 K/uL (1.0-2.8); MCH 34.6 PG (29.0-34.0); MCV 108.2 FL (83-99); MONOCYTE (%) 4.5 % (3-12); MONOCYTE COUNT 0.9 K/uL (0-0.8); NEUTROPHIL COUNT 17.3 K/uL (1.8-6.4); NRBC (%) 0.3 /100 WBC (0-0); PLATELET COUNT 84 K/uL (156-360); RBC DIS.WIDTH-CV 19.6 % (11.8-14.6); RBC DIS.WIDTH-SD 78.3 % (39-53); RED BLOOD COUNT 2.31 M/uL (3.80-5.20); WHITE BLOOD COUNT 20.3 K/uL (4.1-10.2)
[2018-01-26 18:31] LABS: ALBUMIN 3.3 G/DL (3.2-4.8); CHLORIDE 103 MEQ/L (99-109); GFR ESTIMATE (CALCULATED) > 59 mL/min/; GLUCOSE 126 mg/dL (70-99); MAGNESIUM 2.3 mg/dl (1.3-2.7); PHOSPHORUS 1.9 mg/dL (2.5-4.9); POTASSIUM 4.1 MEQ/L (3.7-5.4); SODIUM 138 MEQ/L (136-147); UREA NITROGEN (BUN) 7 mg/dL (9-23)
[2018-01-27 04:50] LABS: BASOPHIL (%) 0.2 % (0-1); EOSINOPHIL (%) 0.1 % (0-5); HEMATOCRIT 24.1 % (36.0-46.0); HEMOGLOBIN 8.2 G/DL (11.9-15.5); LYMPHOCYTE COUNT 1.1 K/uL (1.0-2.8); MCV 105.7 FL (83-99); MONOCYTE (%) 4.3 % (3-12); MONOCYTE COUNT 0.8 K/uL (0-0.8); NEUTROPHIL (%) 85.4 % (45-76); NEUTROPHIL COUNT 16.1 K/uL (1.8-6.4); NRBC (%) 0.3 /100 WBC (0-0); PLATELET COUNT 95 K/uL (156-360); RBC DIS.WIDTH-CV 19.7 % (11.8-14.6); RBC DIS.WIDTH-SD 76.5 % (39-53); RED BLOOD COUNT 2.28 M/uL (3.80-5.20); WHITE BLOOD COUNT 18.9 K/uL (4.1-10.2)
[2018-01-27 05:09] LABS: ALBUMIN 3.3 g/dL (3.2-4.8)
[2018-01-27 05:10] LABS: CHLORIDE 105 mEq/L (99-109); POTASSIUM 3.8 mEq/L (3.7-5.4); SODIUM 138 mEq/L (136-147)
[2018-01-27 05:12] LABS: GLUCOSE 123 mg/dL (70-99); TOTAL PROTEIN 6.1 g/dL (6.4-8.3)
[2018-01-27 05:16] LABS: CREATININE 1.1 mg/dL (0.6-1.3); GFR ESTIMATE (CALCULATED) > 59 mL/min/
[2018-01-27 05:17] LABS: AST (GOT) 158 IU/L (2-34); UREA NITROGEN (BUN) 8 mg/dL (9-23)
[2018-01-27 05:18] LABS: ALT (GPT) 95 IU/L (3-49)
[2018-01-27 05:21] LABS: ALKALINE PHOSPHATASE 967 IU/L (3-129); TOTAL BILIRUBIN 12.5 mg/dL (0.0-1.0)
[2018-01-27 05:27] LABS: ALBUMIN 3.2 g/dL (3.2-4.8); CHLORIDE 104 mEq/L (99-109); POTASSIUM 3.8 mEq/L (3.7-5.4); SODIUM 138 mEq/L (136-147)
[2018-01-27 05:29] LABS: GLUCOSE 122 mg/dL (70-99)
[2018-01-27 05:33] LABS: CREATININE 1.1 mg/dL (0.6-1.3); GFR ESTIMATE (CALCULATED) > 59 mL/min/
[2018-01-27 05:34] LABS: UREA NITROGEN (BUN) 8 mg/dL (9-23)
[2018-01-27 05:36] LABS: MAGNESIUM 2.2 mg/dL (1.3-2.7); PHOSPHORUS 3.8 mg/dL (2.5-4.9)
[2018-01-27 08:37] LABS: QUANTITATIVE HCG 66.3 MIU/ML
[2018-01-27 12:12] LABS: CREATININE 0.9 MG/DL (0.6-1.3); GFR ESTIMATE (CALCULATED) > 59 mL/min/; GLUCOSE 164 mg/dL (70-99); SODIUM 138 MEQ/L (136-147); UREA NITROGEN (BUN) 9 mg/dL (9-23)
[2018-01-27 12:13] LABS: ALBUMIN 2.9 G/DL (3.2-4.8); CHLORIDE 103 MEQ/L (99-109); POTASSIUM 3.6 MEQ/L (3.7-5.4); VANCOMYCIN, TROUGH 10.3 MCG/ML (10-20)
[2018-01-27 12:17] LABS: PHOSPHORUS 2.9 mg/dL (2.5-4.9)
[2018-01-27 14:57] LABS: ALBUMIN 3.1 G/DL (3.2-4.8); CHLORIDE 102 MEQ/L (99-109); CREATININE 1.1 MG/DL (0.6-1.3); GFR ESTIMATE (CALCULATED) > 59 mL/min/; GLUCOSE 152 mg/dL (70-99); PHOSPHORUS 2.2 mg/dL (2.5-4.9); POTASSIUM 3.6 MEQ/L (3.7-5.4); SODIUM 136 MEQ/L (136-147); UREA NITROGEN (BUN) 10 mg/dL (9-23)
[2018-01-27 18:54] LABS: HEMATOCRIT 22.7 % (36.0-46.0); HEMOGLOBIN 7.5 G/DL (11.9-15.5); MCH 35.2 PG (29.0-34.0); MCV 106.6 FL (83-99); NRBC (%) 0.4 /100 WBC (0-0); PLATELET COUNT 97 K/uL (156-360); RBC DIS.WIDTH-SD 75.1 % (39-53); RED BLOOD COUNT 2.13 M/uL (3.80-5.20); WHITE BLOOD COUNT 18.6 K/uL (4.1-10.2)
[2018-01-27 19:17] LABS: CHLORIDE 102 MEQ/L (99-109); CREATININE 1.3 MG/DL (0.6-1.3); GFR ESTIMATE (CALCULATED) 59 mL/min/; GLUCOSE 159 mg/dL (70-99); MAGNESIUM 2.3 mg/dl (1.3-2.7); PHOSPHORUS 2.1 mg/dL (2.5-4.9); POTASSIUM 3.5 MEQ/L (3.7-5.4); SODIUM 136 MEQ/L (136-147); UREA NITROGEN (BUN) 12 mg/dL (9-23)
[2018-01-28 05:14] LABS: HEMATOCRIT 22.2 % (36.0-46.0); HEMOGLOBIN 7.3 G/DL (11.9-15.5); MCH 35.3 PG (29.0-34.0); MCHC 32.9 G/DL (30.0-36.0); MCV 107.2 FL (83-99); NRBC (%) 0.4 /100 WBC (0-0); PLATELET COUNT 91 K/uL (156-360); RBC DIS.WIDTH-CV 18.7 % (11.8-14.6); RBC DIS.WIDTH-SD 73.9 % (39-53); RED BLOOD COUNT 2.07 M/uL (3.80-5.20); WHITE BLOOD COUNT 19.8 K/uL (4.1-10.2)
[2018-01-28 05:40] LABS: ALBUMIN 2.9 G/DL (3.2-4.8); CHLORIDE 101 MEQ/L (99-109); CREATININE 1.1 MG/DL (0.6-1.3); GFR ESTIMATE (CALCULATED) > 59 mL/min/; GLUCOSE 152 mg/dL (70-99); MAGNESIUM 2.3 mg/dl (1.3-2.7); PHOSPHORUS 1.3 mg/dL (2.5-4.9); POTASSIUM 3.7 MEQ/L (3.7-5.4); SODIUM 135 MEQ/L (136-147); UREA NITROGEN (BUN) 10 mg/dL (9-23)
[2018-01-28 17:58] LABS: PLATELET COUNT 151 K/uL (156-360)
[2018-01-28 18:05] LABS: HEMOGLOBIN 8.4 G/DL (11.9-15.5); MCH 34.6 PG (29.0-34.0); MCHC 32.3 G/DL (30.0-36.0); NRBC (%) 1.6 /100 WBC (0-0); RBC DIS.WIDTH-CV 18.2 % (11.8-14.6); RED BLOOD COUNT 2.43 M/uL (3.80-5.20)
[2018-01-28 18:09] LABS: WHITE BLOOD COUNT 37.1 K/uL (4.1-10.2)
[2018-01-28 18:22] LABS: ALBUMIN 3.2 G/DL (3.2-4.8); ALBUMIN 3.3 G/DL (3.2-4.8); ALKALINE PHOSPHATASE 984 IU/L (3-129); ALT (GPT) 119 IU/L (3-49); AST (GOT) 207 IU/L (2-34); CHLORIDE 99 MEQ/L (99-109); CREATININE 1.2 MG/DL (0.6-1.3); DIRECT BILIRUBIN 8.1 mg/dL (0.0-0.3); GFR ESTIMATE (CALCULATED) > 59 mL/min/; GLUCOSE 162 mg/dL (70-99); MAGNESIUM 2.4 mg/dl (1.3-2.7); PHOSPHORUS 3.9 mg/dL (2.5-4.9); POTASSIUM 4.8 MEQ/L (3.7-5.4); SODIUM 134 MEQ/L (136-147); TOTAL BILIRUBIN 13.4 MG/DL (0.0-1.0); TOTAL PROTEIN 5.9 G/DL (6.4-8.3); UREA NITROGEN (BUN) 11 mg/dL (9-23)
[2018-01-29 10:00] VITALS: BP 97/55
[2018-01-29 17:00] VITALS: BP 98/51
[2018-01-29 18:43] LABS: HSV-1 IgG Antibody <0.90 Index (<0.90); HSV-2 IgG Antibody <0.90 Index (<0.90)
== END 2018-01-29 21:02 | DRG 870 ==
LOC: EME 17:38 → EDOF 23:20 → 4WEST 23:20 → 4EAST 23:20 → ENRESERV 23:22 → 4EAST 01-21 01:58 → ENRESERV 01-21 09:51 → 4WEST 01-21 10:55
PROVIDERS: Hospitalist; Internal Medicine; Internal Medicine Critical Care Medicine; Internal Medicine Nephrology; Nurse Practitioner Family
PROC: 5A1D90Z Performance of Urinary Filtration, Continuous, Greater than 18 hours Per Day (ICD-10-PCS; principal; 2018-01-21)
PROC: 05HY33Z Insertion of Infusion Device into Upper Vein, Percutaneous Approach (ICD-10-PCS; 2018-01-21)
PROC: B544ZZA Ultrasonography of Left Jugular Veins, Guidance (ICD-10-PCS; 2018-01-21)
PROC: 03HY32Z Insertion of Monitoring Device into Upper Artery, Percutaneous Approach (ICD-10-PCS; 2018-01-21)
PROC: 5A1955Z Respiratory Ventilation, Greater than 96 Consecutive Hours (ICD-10-PCS; 2018-01-25)
PROC: 0BH17EZ Insertion of Endotracheal Airway into Trachea, Via Natural or Artificial Opening (ICD-10-PCS; 2018-01-25)
PROC: 0BDJ8ZX Extraction of Left Lower Lung Lobe, Via Natural or Artificial Opening Endoscopic, Diagnostic (ICD-10-PCS; 2018-01-26)
PROC: 0BDK8ZX Extraction of Right Lung, Via Natural or Artificial Opening Endoscopic, Diagnostic (ICD-10-PCS; 2018-01-26)
DX: A41.9 Sepsis, unspecified organism (principal); R65.21 Severe sepsis with septic shock; J69.0 Pneumonitis due to inhalation of food and vomit; B00.89 Other herpesviral infection; N17.0 Acute kidney failure with tubular necrosis; E88.3 Tumor lysis syndrome; T45.1X5A Adverse effect of antineoplastic and immunosuppressive drugs, initial encounter; J96.90 Respiratory failure, unspecified, unspecified whether with hypoxia or hypercapnia; Z66 Do not resuscitate; Z51.5 Encounter for palliative care; K72.90 Hepatic failure, unspecified without coma; G93.41 Metabolic encephalopathy; E87.4 Mixed disorder of acid-base balance; E86.0 Dehydration; E87.5 Hyperkalemia; C22.1 Intrahepatic bile duct carcinoma; C78.00 Secondary malignant neoplasm of unspecified lung; C79.51 Secondary malignant neoplasm of bone; C77.9 Secondary and unspecified malignant neoplasm of lymph node, unspecified; C79.89 Secondary malignant neoplasm of other specified sites; C80.0 Disseminated malignant neoplasm, unspecified; G89.3 Neoplasm related pain (acute) (chronic); I10 Essential (primary) hypertension; E28.2 Polycystic ovarian syndrome; G43.909 Migraine, unspecified, not intractable, without status migrainosus; E79.0 Hyperuricemia without signs of inflammatory arthritis and tophaceous disease; E83.39 Other disorders of phosphorus metabolism; E83.51 Hypocalcemia; G62.0 Drug-induced polyneuropathy; D64.9 Anemia, unspecified; I31.3 Pericardial effusion (noninflammatory); R79.89 Other specified abnormal findings of blood chemistry; E43 Unspecified severe protein-calorie malnutrition; R62.7 Adult failure to thrive; K44.9 Diaphragmatic hernia without obstruction or gangrene; Z87.891 Personal history of nicotine dependence; Z99.81 Dependence on supplemental oxygen
CPT/HCPCS: 36600; 70450; 71045; 71046; 71250; 74176; 76705; 76770; 78226; 78999; 80048; 80053; 80069; 80076; 80202; 81003; 82140; 82330; 82533 91; 82803; 83605; 83735; 84100; 84145 90; 84443; 84484; 84550; 84702; 85025; 85025 91; 85027; 85610; 85730; 86141; 86695 90; 86696 90; 87040; 87070; 87102; 87106; 87116; 87205; 87206; 87252 90; 87254 90; 87278; 87641; 88108; 93005; 93306; 94002; 94003; 94640; 94760; 94799; 99281; 99285; A9537; C1751; C1753; C1788; C9113; J0133; J0330; J0456; J0636; J0696; J1100; J1644; J2248; J2370; J2543; J2704; J2783; J2930; J3010; J3370; J3420; J7030; J7040; J7050; J7070; P9045; P9047; Q0167